=== PATIENT | male | born 1980 | race Caucasian/White ===

== ENCOUNTER 2019-06-07 14:00 | Inpatient (IN) | payer OTHER ==
[~2019-06-07] VITALS: Ht 177.8 cm; Wt 83.5 kg
[2019-06-07 14:17] VITALS: BP 120/84
[2019-06-07 14:42] LABS: URINE BILIRUBIN NEGATIVE (Negative); URINE BLOOD NEGATIVE (Negative); URINE CLARITY CLEAR; URINE COLOR STRAW; URINE GLUCOSE-RANDOM NEGATIVE (Negative); URINE KETONES NEGATIVE (Negative); URINE LEUKOCYTES-REFLEX NEGATIVE (Negative); URINE NITRITE-REFLEX NEGATIVE (Negative); URINE PROTEIN NEGATIVE (Negative); URINE SPECIFIC GRAVITY <= 1.005 (1.005-1.030); URINE UROBILINOGEN 0.2 E.U./dl (0.2-1.0)
[2019-06-07 15:11] LABS: ABSOLUTE BASOPHILS 0.1 thou/uL (0.0-0.2); ABSOLUTE EOSINOPHILS 0.2 thou/uL (0.0-0.7); ABSOLUTE LYMPHOCYTES 0.6 thou/uL (0.8-5.3); ABSOLUTE NEUTROPHILS 3.8 thou/uL (1.6-8.1); BASOPHILS 1.2 %; EOSINOPHILS 3.1 %; HEMATOCRIT 44.9 % (42.0-52.0); LYMPHOCYTES 11.2 %; MCH 34.4 pg (26.0-34.0); MCHC 35.7 g/dL (28.0-37.0); MCV 96.4 fL (80.0-100.0); MONOCYTES 18.4 %; MPV 8.7 fl. (7.2-11.1); NUCLEATED RBCS 0 /100WBC; PLATELET COUNT* 140 thou/uL (150-400); POLYS 66.1 %; RBC 4.66 mil/uL (4.50-6.00); RDW-CV 13.7 % (10.5-14.5); WBC 5.7 thou/uL (4.0-11.0)
[2019-06-07 15:21] LABS: CALCIUM 9.9 mg/dL (8.5-10.1); CREATININE 0.7 mg/dL (0.6-1.3); POTASSIUM 3.3 mmol/L (3.5-5.1)
[2019-06-07 15:26] LABS: ALBUMIN 4.1 g/dL (3.4-5.0); TOTAL BILIRUBIN 0.4 mg/dL (<0.1-1.0); TOTAL PROTEIN 7.2 g/dL (6.4-8.2)
[2019-06-07 18:07] VITALS: BP 128/91
[2019-06-07 20:00] VITALS: BP 117/86
[2019-06-08] VITALS: BP 125/84
[2019-06-08 03:57] VITALS: BP 127/79
[2019-06-08 07:34] VITALS: BP 124/81
--- NOTE | 2019-06-08 07:35 | NUR ---
ASSUMED CARE OF PT AFTER REPORT AT 1930. PT A&OX4. VSS. PHYSICAL ASSESSMENT COMPLETED AND CHARTED. PT ON RA. PT TRACING SR/ST ON TELE. PT UPADLIB TO RESTROOM. PT COMPLAINED OF ABDOMINAL PAIN-MEDS GIVEN PER AUG. CHARTED. POTASSIUM 3.3. DR RICE MADE AWARE WITH NEW ORDERS. CALL LIGHT WITHIN REACH.
[2019-06-08 11:13] LABS: INFLUENZA A ANTIGEN Positive (Negative); INFLUENZA B ANTIGEN Negative (Negative)
[2019-06-08 13:48] VITALS: BP 121/82
--- NOTE | 2019-06-08 16:49 | NUR ---
PATINET RESTING IN BED. UP AD KELTON IN ROOM. POSITIVE FOR INFLUENZA A AND ON DROPLET PRECUATIONS. VSS. HE WAS FEBRILE OVERNIGHT. HOURLY ROUNDING COMPLETD FOR PATIENT SAFETY. CIWA PROTOCOL IN PLACE.
[2019-06-08 19:15] VITALS: BP 130/85
[2019-06-08 20:00] VITALS: BP 125/86
[2019-06-09] VITALS: BP 104/77
[2019-06-09 04:00] VITALS: BP 138/90
[2019-06-09 05:09] LABS: HEMATOCRIT 43.8 % (42.0-52.0); HEMOGLOBIN 15.7 gm/dL (14.0-18.0); MCH 34.2 pg (26.0-34.0); MCHC 35.8 g/dL (28.0-37.0); MCV 95.5 fL (80.0-100.0); MPV 9.4 fl. (7.2-11.1); RBC 4.59 mil/uL (4.50-6.00); RDW-CV 13.2 % (10.5-14.5); WBC 2.4 thou/uL (4.0-11.0)
[2019-06-09 05:30] LABS: ALBUMIN 3.7 g/dL (3.4-5.0); CALCIUM 8.4 mg/dL (8.5-10.1); CREATININE 0.7 mg/dL (0.6-1.3); MAGNESIUM 2.3 mg/dL (1.8-2.4); POTASSIUM 3.8 mmol/L (3.5-5.1); TOTAL BILIRUBIN 0.7 mg/dL (<0.1-1.0)
[2019-06-09 06:01] LABS: PROTIME 10.6 Seconds (9.20-11.50)
--- NOTE | 2019-06-09 07:01 | NUR ---
ASSUMED CARE OF PT AFTER REPORT AT 1930. PT A&OX4. VSS. PHYSICAL ASSESSMENT COMPLETED AND CHARTED. PT ON RA. PT TRACING SR/ST ON TELE. PT UPADLIB TO RESTROOM. PT WITH TEMP OF 102.8-DR PHAM MADE AWARE WITH NEW ORDER. FAMILY AT BS. PT COMPLAINED OF GENERALIZED BODY ACHE-MEDS GIVEN PER CHARTED. CALL LIGHT WITHIN REACH.
[2019-06-09 08:00] VITALS: BP 136/88
--- NOTE | 2019-06-09 09:28 | NUR ---
Pt is A&O. Resides at home with his . Active and independent. No DME. No hx of HH or SNF. Goal is home at dc, no needs anticipated.
--- NOTE | 2019-06-09 10:30 | NUR ---
ASSUMED CARE OF PT AT 0730. PT RESTING IN BED. AT BEDSIDE. A&0X4, PT COMPLAINS OF GENERALIZED BODY ACHES. TRACING SR/ST ON THE OPERATIONS INSPECTOR. PT FEBRILE THIS AM- 100.8. PT SCREENED POSITIVE FOR SEPSIS THIS AM- NOC SHIFT NOTIFIED PHYSICIAN. AWAITING ORDERS AT THIS TIME. IN DROPLET ISOLATION FOR INFLUENZA A. ON RA SAT UPPER 90'S. DENIES ANY SHORTNESS OF BREATH. PT UP AD KELTON IN ROOM. PT GOAL FOR TODAY IS MAINTAIN TEMPERATURE BELOW 100.0, INCREASE ACTIVITY, MAINTAIN HEART RATE BELOW 100 AND PAIN MGMT. CIWA CHARTED. AM ASSESSMENT CHARTED. MEDICATIONS PER AUG. PT REPOSITIONS SELF. HOURLY ROUNDING OBSERVED. BED IN LOW POSITION. CALL LIGHT WITHIN REACH. WILL CONTINUE PLAN OF CARE.
[2019-06-09 12:14] VITALS: BP 125/89
[2019-06-09 16:13] VITALS: BP 122/87
--- NOTE | 2019-06-09 17:48 | NUR ---
NO ACUTE CHANGES THROUGHOUT SHIFT. REFER TO CHARTING. AFTERNOON TEMP-100.8. MUCOMYST STARTED PER DR PHAM THIS AFTERNOON-REFER TO EMAR. PT TO HAVE CBC AND CMP IN AM. GI CONSULT IN PLACE FOR HEPATITIS. MULTIPLE LABS ORDERED BY GI AND ABDOMINAL ULTRASOUND- PT NPO AFTER MIDNIGHT FOR ULTRASOUND IN AM. CIWA CHARTED-2-4. AT BEDSIDE THROUGHOUT SHIFT AND UPDATED ON CURRENT PLAN OF CARE. IVF. NEW IV PLACED TO RIGHT FOREARM THIS AFTERNOON. IN DROPLET PRECAUTIONS FOR INFLUENZA A. CONTINUES TO TRACE SR/ST ON THE MANAGER WILLOW. ON RA SAT UPPER 90'S. PT UP AD KELTON IN ROOM. NOT PROGRESSING TOWARDS GOALS. MEDICATIONS PER AUG. PT REPOSITIONS SELF. HOURLY ROUNDING OBSERVED. BED IN LOW POSITION. CALL LIGHT WITHIN REACH. WILL CONTINUE PLAN OF CARE.
[2019-06-09 19:40] VITALS: BP 116/73
[2019-06-10] VITALS: BP 113/64
[2019-06-10 04:00] VITALS: BP 102/65
[2019-06-10 04:38] LABS: HEMATOCRIT 43.4 % (42.0-52.0); HEMOGLOBIN 15.8 gm/dL (14.0-18.0); MCH 34.1 pg (26.0-34.0); MCHC 36.3 g/dL (28.0-37.0); MCV 93.9 fL (80.0-100.0); MPV 9.8 fl. (7.2-11.1); RBC 4.63 mil/uL (4.50-6.00); RDW-CV 13.2 % (10.5-14.5); WBC 6.3 thou/uL (4.0-11.0)
--- NOTE | 2019-06-10 04:45 | NUR ---
ASSUMED CARE OF PT AT 1900. PT IS ALERT AND ORIENTED. VSS. PERRLA. NO COMPLAINTS OF PAIN. TEMP WAS 103. PT RECIEVING TYLENOL. TEMP IS NOW 99. PT IS IN SINUS RYTHM ON THE TELEMETRY. PT IS RESTING COMFORTABLY IN BED. RESPIRATIONS ARE EVEN AND NONLABORED. WILL CONTINUE TO MONITOR PT.
[2019-06-10 04:52] LABS: ALBUMIN 3.4 g/dL (3.4-5.0); CALCIUM 7.5 mg/dL (8.5-10.1); CREATININE 0.7 mg/dL (0.6-1.3); POTASSIUM 3.4 mmol/L (3.5-5.1); TOTAL BILIRUBIN 0.5 mg/dL (<0.1-1.0); TOTAL PROTEIN 6.6 g/dL (6.4-8.2)
[2019-06-10 12:59] VITALS: BP 107/73
[2019-06-10 18:16] VITALS: BP 122/81
[2019-06-10 19:50] VITALS: BP 118/71
[2019-06-11] VITALS: BP 111/75
--- NOTE | 2019-06-11 03:52 | NUR ---
ASSUMED CARE OF PT AT 1900. PT IS ALERT AND ORIENTED. VSS. PERRLA. PT IS IN FLU ISOLATIONS. PT IS IN SINUS RYTHM ON THE TELEMETRY. PT IS RESTING COMFORTABLY IN BED. RESPIRATIONS ARE EVEN AND NONLABORED. WILL CONTINUE TO MONITOR PT.
[2019-06-11 04:00] VITALS: BP 112/70
[2019-06-11 08:20] VITALS: BP 115/73
--- NOTE | 2019-06-11 11:57 | NUR ---
VSS, ASSUMED CARE IN THE AM, ASSESSMENT PERFORMED AND CHARTED, FALL PRECAUTIONS IN PLACE AND CALL LIGHT IN REACH, PT IS A&O4, UP AD KELTON AND DENIES ANY PAIN, PT GOAL IS TO IMPROVE ACTIVITY, PT HAS FEVER, TRACING ST/SR ON THE MONITOR, PT IS IN ISO FOR FLU, WILL FOLLOW WITH PLAN OF CARE.
[2019-06-11] MEDS ORDERED: PAXIL10 MG PO (12:43)
[2019-06-11 14:00] VITALS: BP 115/73
--- NOTE | 2019-06-11 14:20 | NUR ---
VSS, PT HAS BEEN GIVEN DISCHARGE ORDERS, PT DENIES ANY QUESTIONS AT TIME OF D/C, PT WALKED OUT WITH ALL BELONGINGS,
[2019-06-12 07:06] LABS: HEPATITIS B SURFACE AG Negative (Negative)
[2019-06-12 10:11] LABS: ANA INTERPRETATION Negative (Negative)
--- NOTE | 2019-06-12 20:32 | CON ---
[address] [address] CONSULTATION Name: TAYLOR WEST Room: [address] IN M.R.#: [id number] Admission: 06/07/19 Attend Phys: Ritesh Scales Discharge: 06/11/19 Date of : 84 Report #: [id number] THIS REPORT FOR: //name// CC: Mackenzie Pickett HISTORY OF PRESENT ILLNESS: A pleasant 38-year-old gentleman with no significant past medical history who is presenting for evaluation of abdominal pain, cramping and blood in stool. The patient also reports a cough, fever, malaise and reports that his daughter just had recovered from flu. The GI Service has been consulted for evaluation of elevated liver enzymes. The patient was tested for influenza and tested positive for type A influenza antigen. The patient denies prior episodes of jaundice and denies a history of liver disease in the past. PAST MEDICAL HISTORY: Nonsignificant. PAST SURGICAL HISTORY: The patient had elbow surgery in the remote past. SOCIAL HISTORY: The patient drinks about a pint and a half every day and has been doing this for several years and smokes about a pack and a half every day and has been doing this for the last 20 years. He denies any recreational drug use. Does report getting a tattoo, but this was about 8 or 9 years back. FAMILY HISTORY: No family history of colon cancer or Mancuso related neoplasia. REVIEW OF SYSTEMS: A comprehensive 10-point review of systems is negative except for what was mentioned in the HPI. PHYSICAL EXAMINATION: VITAL SIGNS: Temperature 38.0, pulse rate 100, respirations 21, blood pressure 122/87, and pulse ox 96% on room air. GENERAL: The patient is alert, awake, oriented x 3. HEENT: Pupils are equal, round, reactive to light and accommodation. Mucous membranes are moist. There is no congestion. LUNGS: Clear to auscultation bilaterally. CARDIOVASCULAR: Rate and rhythm regular, S1, S2 present. ABDOMEN: Soft. There is no distention, guarding or rigidity. EXTREMITIES: Warm, well perfused. There is no edema. SKIN: Warm and dry. LABORATORY DATA: Hemoglobin 15.7, hematocrit 43.8, platelet count 87, WBC count 2.4. INR 1.0, PT 10.6. Sodium 134, potassium 3.8, chloride 97, bicarbonate 27, BUN 8, creatinine 0.7, total bilirubin 0.7. AST, ALT on presentation were 219 and 196 respectively, increased to 514 and 321, alkaline phosphatase 56. Serum alcohol level was 306 [place] [address] CONSULTATION Name: TAYLOR WEST Room: [address] IN ..#: [id number] Admission: 06/07/19 Attend Phys: Ritesh Scales Discharge: 06/11/19 Date of : 84 Report #: [id number] IMAGING: Abdomen and pelvis CT, this demonstrates a jejunal intussusception left mid abdomen, which is nonspecific and could be transient. Normal colon, appendix and fatty liver. ASSESSMENT AND PLAN: A pleasant 38-year-old gentleman who presented with flu. GI Service consulted for elevated liver enzymes. I would recommend checking hepatitis panel to rule out acute hepatitis infection. The liver enzymes can certainly be elevated with influenza infection. I would also recommend getting an ultrasound of abdomen to rule out Budd-Chiari syndrome. Further recommendations will be based on results of these tests. <ELECTRONICALLY SIGNED> By: Meño Davis MD 06/12/192031 1616 [id number] Davis MD /nt
== END 2019-06-11 14:30 | disposition home or self-care (01) | DRG 433 ==
LOC: M.ERS 14:00 → M.2W 17:34 → M.TBA-ER 17:34 → M.2W 18:27
PROVIDERS: Family Medicine; Internal Medicine; Internal Medicine Gastroenterology; ADMIT Internal Medicine
DX: K70.10 Alcoholic hepatitis without ascites (principal); K56.1 Intussusception; K92.2 Gastrointestinal hemorrhage, unspecified; J10.1 Influenza due to other identified influenza virus with other respiratory manifestations; K58.9 Irritable bowel syndrome, unspecified; F17.210 Nicotine dependence, cigarettes, uncomplicated; F12.90 Cannabis use, unspecified, uncomplicated; K70.0 Alcoholic fatty liver; F10.129 Alcohol abuse with intoxication, unspecified

== ENCOUNTER 2019-06-16 07:01 | Inpatient (IN) | payer OTHER ==
[~2019-06-16] VITALS: Ht 177.8 cm; Wt 74.8 kg
[~2019-06-16 07:01] MED LIST: PAXIL10 MG PO
[2019-06-16 07:21] VITALS: BP 147/88
[2019-06-16 07:59] LABS: ABSOLUTE BASOPHILS 0.1 thou/uL (0.0-0.2); ABSOLUTE LYMPHOCYTES 0.9 thou/uL (0.8-5.3); ABSOLUTE MONOCYTES 2.8 thou/uL (0.0-1.2); BASOPHILS 0.7 %; EOSINOPHILS 0.3 %; HEMATOCRIT 45.9 % (42.0-52.0); HEMOGLOBIN 16.3 gm/dL (14.0-18.0); LYMPHOCYTES 5.7 %; MCH 33.4 pg (26.0-34.0); MCHC 35.5 g/dL (28.0-37.0); MCV 93.9 fL (80.0-100.0); MONOCYTES 17.6 %; MPV 8.7 fl. (7.2-11.1); NUCLEATED RBCS 0 /100WBC; PLATELET COUNT* 384 thou/uL (150-400); POLYS 75.7 %; RBC 4.89 mil/uL (4.50-6.00); RDW-CV 12.9 % (10.5-14.5); WBC 15.8 thou/uL (4.0-11.0)
[2019-06-16 08:06] LABS: BE -2.3 mmol/L (-2 to +3); PCO2 27.4 mmHg (35.0-45.0)
[2019-06-16 08:06] LABS: CALCIUM 8.6 mg/dL (8.5-10.1); CREATININE 0.7 mg/dL (0.6-1.3)
[2019-06-16 08:07] LABS: PO2 57.2 mmHg (75.0-100.0)
[2019-06-16 08:07] LABS: POTASSIUM 2.9 mmol/L (3.5-5.1)
[2019-06-16 08:10] LABS: INR 1.1; PROTIME 11.1 Seconds (9.20-11.50)
[2019-06-16 08:17] LABS: ALBUMIN 3.1 g/dL (3.4-5.0); TOTAL BILIRUBIN 0.9 mg/dL (<0.1-1.0); TOTAL PROTEIN 7.7 g/dL (6.4-8.2)
[2019-06-16 10:35] VITALS: BP 147/88
[2019-06-16 12:23] VITALS: BP 112/77
--- NOTE | 2019-06-16 15:19 | EKG ---
[place] [address] ELECTROCARDIOGRAM REPORT Name: TAYLOR WEST Room: [address] ADM IN .R.#: [id number] Admission: 06/16/19 Attend Phys: Hilton Blank Discharge: Date of : 84 Report #: [id number] THIS REPORT FOR: //name// [facility] ED Test Date: 2019-06-16 Test Time: 07:51:16 Pat Name: TAYLOR WEST Department: Room: [facility] Gender: M Construction Cost Estimator: TDTHOMAS : 1980 Requested By: Edgardo Angel Order Number: [id number] MD: Daniel Logan Measurements Intervals [place] Rate: 89 P: 56 GA: 142 QRS: 22 QRSD: 109 T: 41 QT: 378 QTc: 460 Interpretive Statements Sinus rhythm RSR' in V1 or V2, right VCD or RVH Baseline wander in lead(s) V6 No previous ECG available for comparison Electronically Signed On 06-16-2019 15:18:33 CORRECTIONAL CASE MANAGER by Daniel Logan [email or web address] <ELECTRONICALLY SIGNED> By: Daniel Logan MD, [facility] 06/16/19 1518 [id number] Daniel Logan MD, [facility] /EPI
[2019-06-16 17:29] VITALS: BP 110/71
--- NOTE | 2019-06-16 18:54 | NUR ---
RADHA RESTING IN BED. UP AD KELTON IN ROOM. LUNG SOUNDS DIMINISHED AND PATIENT USING 2L PER NASAL CANULA. VSS. IV ABX INFUSING. NSR ON MONITOR. HOURLY ROUNDING COMPLETED FOR PATIENT SAFETY.
[2019-06-16 20:00] VITALS: BP 107/68
[2019-06-17] VITALS: BP 103/71
[2019-06-17 04:00] VITALS: BP 128/76
--- NOTE | 2019-06-17 04:55 | NUR ---
ASSUMED PT CARE AT APPROX 1930. PT IS AWAKE AND ORIENTED X4. VSS ON 2L OF O2/NC. MICA PATCHER IN PLACE TRACING SR. IV ANTIBIOTICS GIVEN PER AUG, POTASSIUM REPLACEMENT IN PROGRESS PER PROTOCOL. PT IS ABLE TO SLEEP MOST OF THE NIGHT. CALL LIGHT WITHIN REACH. HOURLY ROUNDING DONE FOR PT SAFETY.
[2019-06-17 06:04] LABS: HEMATOCRIT 42.1 % (42.0-52.0); HEMOGLOBIN 14.8 gm/dL (14.0-18.0); MCH 33.2 pg (26.0-34.0); MCHC 35.1 g/dL (28.0-37.0); MCV 94.6 fL (80.0-100.0); RBC 4.45 mil/uL (4.50-6.00); RDW-CV 13.3 % (10.5-14.5); WBC 11.3 thou/uL (4.0-11.0)
[2019-06-17 06:14] LABS: CALCIUM 8.2 mg/dL (8.5-10.1); CREATININE 0.7 mg/dL (0.6-1.3); POTASSIUM 3.4 mmol/L (3.5-5.1)
[2019-06-17 07:45] VITALS: BP 106/67
[2019-06-17 11:30] VITALS: BP 104/69
--- NOTE | 2019-06-17 11:37 | NUR ---
Pt is A&O. Resides at home with his . Known to this CM from previous hospital stay in May. Independent. No DME. No hx of HH or SNF. Goal is home at co. Following.
[2019-06-17 16:07] VITALS: BP 115/72
--- NOTE | 2019-06-17 18:37 | NUR ---
PATINET RESTING IN BED. UP AD EKLTON IN ROOM. SUPPLEMENTAL O2 DECREASED TO 1L PER NASAL CANULA. VSS. PATIENT PREOGRESSING TOWRDS GOALS. POSSIBLE REACTION OT ABX THERAPY TODAY WITH MILD ERYTHEMATIC RASH TO ABD, TREATED WITH BENADRYL. HOURLY ROUNDING COMPLETED FOR PATINET SAFETY.
[2019-06-17 20:00] VITALS: BP 110/72
[2019-06-18] VITALS: BP 124/76
[2019-06-18 03:57] VITALS: BP 113/76
--- NOTE | 2019-06-18 05:22 | NUR ---
ASSUMED CARE OF PT AFTER REPORT AT 1930. PT A&OX4. VSS. PHYSICAL ASSESSMENT COMPLETED AND CHARTED. PT ON RA. PT TRACING SB ON TELE. PT UP ADLIB TO RESTROOM. PT DENIES ANY PAIN OR DISCOMFORT. MRSA NASAL SWAB & SPUTUM SPECIMEN SENT TO LAB. PT ABLE TO SLEEP WELL ON BED. CALL LIGHT WITHIN REACH.
[2019-06-18 06:30] LABS: HEMATOCRIT 40.2 % (42.0-52.0); HEMOGLOBIN 14.3 gm/dL (14.0-18.0); MCH 34.1 pg (26.0-34.0); MCHC 35.6 g/dL (28.0-37.0); MCV 95.9 fL (80.0-100.0); MPV 8.8 fl. (7.2-11.1); RBC 4.19 mil/uL (4.50-6.00); RDW-CV 13.4 % (10.5-14.5); WBC 10.5 thou/uL (4.0-11.0)
[2019-06-18 06:38] LABS: CALCIUM 8.2 mg/dL (8.5-10.1); CREATININE 0.7 mg/dL (0.6-1.3); POTASSIUM 3.8 mmol/L (3.5-5.1)
[2019-06-18 07:50] VITALS: BP 124/81
[2019-06-18 12:00] VITALS: BP 102/52
--- NOTE | 2019-06-18 12:33 | CON ---
[address] [address] CONSULTATION Name: TAYLOR WEST Room: [address] M.R.#: [id number] Admission: 06/16/19 Attend Phys: Hilton Blank Discharge: Date of : 84 Report #: [id number] THIS REPORT FOR: //name// CC: Hilton Viveros [facility] DATE OF SERVICE: 06/17/2019 INFECTIOUS DISEASE CONSULTATION ATTENDING PHYSICIAN: Hilton Viveros MD REASON FOR EVALUATION: Pneumonitis, perhaps as a complication of influenza A. HISTORY OF PRESENT ILLNESS: Chart reviewed, patient examined. This 38-year-old without significant medical history, although is known to have some ethanol abuse, who was actually hospitalized last week, was diagnosed with influenza A and stayed a requisite amount of days, was improved, was discharged only to have worsening signs and symptoms including increasing dyspnea, cough, not particularly productive, fevers which have been high grade. Reevaluation in the Emergency Room showed evidence of bilateral pneumonitis on imaging and hypoxemia. This required some supplemental oxygen. Initial white count was elevated at 15.8. Empirically started on combination therapy with piperacillin, tazobactam, vancomycin and levofloxacin. Clinically, has improved, although now he notes a pruritic type eruption involving his trunk and proximal lower extremities. Denies any significant gastrointestinal-related complaints. He is not encephalopathic. ALLERGIES: None known. MEDICATIONS: Include vancomycin, Zosyn, ipratropium and albuterol inhaler, levofloxacin. PAST MEDICAL HISTORY: Fairly unremarkable. SOCIAL HISTORY: Smokes cigarettes and uses marijuana and as noted above daily alcohol. FAMILY HISTORY: Noncontributory. REVIEW OF SYSTEMS: As above, otherwise unremarkable 10-point review of systems. PHYSICAL EXAMINATION: GENERAL: He is alert, cooperative, appropriate. He is in mild distress. He is lucid. He is actually off supplemental oxygen at this point, appears to [place] [address] CONSULTATION Name: TAYLOR WEST Room: [address] IN [facility].#: [id number] Admission: 06/16/19 Attend Phys: Hilton Blank Discharge: Date of : 84 Report #: [id number] VITAL SIGNS: Temperature 98.1 and a T-max of 101.3 over the course of the last 24 hours, pulse 60, respirations 15, blood pressure is 106/67. SKIN: Warm, dry, no rashes. HEENT: Normocephalic. Extraocular muscles are intact. NECK: Supple. LUNGS: Few scattered coarse breath sounds. HEART: Regular. I do not appreciate murmur. ABDOMEN: Soft, nontender, nondistended. EXTREMITIES: No cyanosis. SKIN: Has a small almost petechial type eruption involving the trunk as well as the back and proximal lower extremities, certainly consistent with a drug hypersensitivity rash. GENITOURINARY: Deferred. RECTAL: Deferred. LABORATORY DATA: Blood cultures are sterile thus far. Electrolytes: Sodium 139, potassium 3.4, chloride 102, bicarbonate is 30, anion gap of 7, BUN and creatinine 7 and 0.7, glucose of 90. Estimated GFR 128. CBC: White count of 11.3, H and H 14.8 and 42.1, platelets of 385. CTA chest PE protocol, no evidence of PE, diffuse patchy alveolar infiltrate, likely pneumonia. Liver functions were noted with ALT elevated at 87. AST of 46. Albumin of 3.1. Troponin less than 0.06. Lactic acid 1.2. ABGs on admission: pH 7.470, pCO2 of 27.4, pO2 of 57.2. ASSESSMENT AND PLAN: 1. Pneumonitis, likely bacterial as a complication of initial influenza A. I suspect drug hypersensitivity reaction. We will try to pare down therapy to a single agent utilizing levofloxacin. At this point, he is not overly toxic. We will monitor as expectantly. Treat the rash with pruritus symptomatically at this point utilizing some antihistamines. 2. Secondly, he has elevated LFTs. This may well be related to alcohol. Noted he had acute hepatitis panel done within the last week, which was otherwise unremarkable. Would not pursue that further as the MRSA, PCR pending as well. <ELECTRONICALLY SIGNED> By: Elliot Martínez MD 06/18/19 1233 [id number] Martínez MD /nt
--- NOTE | 2019-06-18 15:57 | NUR ---
ASSUMED PT CARE 0730. PT A/O X'S 4. NO C/O OF PAIN. PT UP AD KELTON. VSS. AFEBRILE. PT REPORTS IMPROVEMENT WITH PINKNESS ON ABDOMEN. WILL CONTINUE PLAN OF CARE.
--- NOTE | 2019-06-18 18:47 | NUR ---
PATIENT TRANSFERRED FROM [facility] TO ROOM 317. NO COMPLAINTS OF PAIN. IV SL THIS EVENING PER ORDERS. WILL CONTINUE TO MONITOR.
[2019-06-18 20:50] VITALS: BP 114/75
[2019-06-19 08:45] VITALS: BP 107/68
[2019-06-19] MEDS ORDERED: MUCINEX1200 MG PO (11:15)
[2019-06-19] MEDS ORDERED: LEVAQUIN 750 M750 MG PO (11:15)
[2019-06-19 13:41] VITALS: BP 107/68
[2019-06-19 13:45] VITALS: BP 107/68
[2019-06-19 14:25] VITALS: BP 107/68
--- NOTE | 2019-06-19 14:26 | NUR ---
1420 PATIENT ALERT AND ORIENTED X4. PATIENT AMBULATING IN ROOM AD KELTON THROUGHOUT SHIFT. ALL SAFETY MEASURES MAINTAINED. PATIENT DENIES PAIN. DISCHARGE PAPERWORK AND PRESCRIPTIONS REVIEWED WITH PATIENT. PATIENT DENIES FURTHER NEEDS OR QUESTIONS.
== END 2019-06-19 14:20 | disposition home or self-care (01) | DRG 177 ==
LOC: M.ERS 07:01 → M.TBA-ER 09:58 → M.2W 09:58 → M.3W 06-18 18:31
PROVIDERS: Family Medicine; ADMIT Family Medicine
DX: J15.6 Pneumonia due to other Gram-negative bacteria (principal); J80 Acute respiratory distress syndrome; E44.1 Mild protein-calorie malnutrition; E87.1 Hypo-osmolality and hyponatremia; F10.20 Alcohol dependence, uncomplicated; F17.210 Nicotine dependence, cigarettes, uncomplicated; F12.90 Cannabis use, unspecified, uncomplicated; F41.9 Anxiety disorder, unspecified; E87.6 Hypokalemia; Y95 Nosocomial condition; J10.08 Influenza due to other identified influenza virus with other specified pneumonia; J69.0 Pneumonitis due to inhalation of food and vomit; Z79.899 Other long term (current) drug therapy; Z68.23 Body mass index [BMI] 23.0-23.9, adult